=== PATIENT | male | born 1945 | race Caucasian/White ===

== ENCOUNTER → 2017-03-27 | Outpatient (CLI) | payer MEDICARE ==
[~2017-03-27] MED LIST: ALEV220T14 PO; ASPI-110 PO; B COTAB6 PO; DOXE10CA PO; FLUT1SPR5 EACH NARE; METO25TA6 PO; MULT1TAB46 PO; OMEG500C PO; RANI150T PO; SAW500CA PO; SIMV20TA PO; SPIR25 PO
--- NOTE | 2017-03-29 09:22 | RSPPFT ---
DATE OF PROCEDURE: 03/27/17 COMMENTS: Spirometry with FVC of 4.3 at 115% of predicted, FEV1 of 3.2 at 108%, FEV1/FVC ratio is normal. Flow is normal at FEF 25, FEF 50, FEF 75 and FEF 25-75. There is no response after bronchodilator treatment. Lung volumes show residual volume is normal. TLC is normal. Diffusion capacity is normal. Flow volume loop indicates a normal pattern. IMPRESSION: 1. Normal spirometry. 2. No response after bronchodilator treatment. 3. Normal lung volumes. 4. Normal diffusion capacity.
== END ==
LOC: HRSP 09:56
PROVIDERS: ATTEND Internal Medicine Cardiovascular Disease
DX: R06.02 Shortness of breath (principal)
CPT/HCPCS: 94060; 94726; 94729